=== PATIENT | male | born 1955 | race Hispanic/Latino ===

== ENCOUNTER 2017-08-24 06:24 | Day surgery (SDC) | payer BC ==
[2017-08-17 11:48] VITALS: BMI 27.9
[2017-08-24] MEDS ORDERED: Propofol 10 mg/ml Inj (20 ML) ONE (07:52)
[2017-08-24 10:26] VITALS: BP 143/75; PULSE 61; RESP 18; TEMP 97.5; O2SAT 97
== END 2017-08-24 12:00 | disposition home or self-care (01) ==
LOC: ENDO 06:24
PROVIDERS: ATTEND Specialist
DX: Z12.11 Encounter for screening for malignant neoplasm of colon (principal); D12.3 Benign neoplasm of transverse colon; K57.30 Diverticulosis of large intestine without perforation or abscess without bleeding; K64.8 Other hemorrhoids; K29.50 Unspecified chronic gastritis without bleeding; K21.0 Gastro-esophageal reflux disease with esophagitis; K44.9 Diaphragmatic hernia without obstruction or gangrene; K31.89 Other diseases of stomach and duodenum; D50.9 Iron deficiency anemia, unspecified
CPT/HCPCS: 43239; 45385; 82948; 88305; 88312; 88342; J2001; J2704; J7040